=== PATIENT | male | born 1960 | race Caucasian/White ===

== ENCOUNTER 2016-09-25 06:30 | Emergency (ER) | payer BC, OTHER ==
[~2016-09-25] VITALS: Ht 175.3 cm; Wt 81.6 kg
[~2016-09-25 06:30] MED LIST: LOSA1TAB2 PO
[2016-09-25 06:37] VITALS: BP 127/76
== END 2016-09-25 06:48 | disposition home or self-care (01) ==
LOC: ER 06:38
DX: L03.012 Cellulitis of left finger (principal); I10 Essential (primary) hypertension
CPT/HCPCS: A4606; Z7610

== ENCOUNTER 2021-04-13 21:02 | Emergency (ER) | payer OTHER, MEDICAID ==
[~2021-04-13] VITALS: Ht 182.9 cm; Wt 86.2 kg
--- NOTE | 2021-04-13 21:20 | NUR ---
PT BIBWIFE C/O POSSIBLE ABSCESS NEAR ANUS. PT ALERT AND ORIENTED X3. AMBULATORY WITH NON LABORED BREATHING. ACCOMPANIED BY HIS AT BEDSIDE FOR TRANSLATING TAJIK
[2021-04-13] MEDS ORDERED: oxyCODONE/APAP (5/325 MG) 1 UDTAB TABLET ONE (21:28)
[2021-04-13] MEDS ORDERED: LIDOCAINE/PRILOCAINE (5GM) 5 GM TUBE TP ONE ×2 (21:28→21:30)
[2021-04-13] MEDS ORDERED: oxyCODONE/APAP (5/325 MG) 1 UDTAB TABLET PO ONE (21:30)
[2021-04-13] MEDS ORDERED: IV NS 0.9% 250 ML IV ONE (22:01)
[2021-04-13] MEDS ORDERED: IOHEXOL-300 100 ML VIAL IV ONE (22:01)
--- NOTE | 2021-04-13 22:10 | NUR ---
PT GOING TO CT
[2021-04-13 22:34] LABS: BASOPHILS # (AUTO) 0.1 K/uL (0.0-0.2); BASOPHILS % (AUTO) 0.7 % (0.0-2.0); EOSINOPHILS % (AUTO) 2.3 % (0.0-6.0); HEMATOCRIT 41 % (39-51); LYMPHOCYTES % (AUTO) 32.5 % (20.0-44.0); MEAN CORPUSCULAR HGB CONC 34 g/dl (31.0-36.0); MEAN CORPUSCULAR VOLUME 95 fL (80-96); MONOCYTES # (AUTO) 0.9 K/uL (0.1-1.30); MONOCYTES % (AUTO) 9.3 % (2.0-12.0); NEUTROPHILS # (AUTO) 5.1 K/uL (1.8-8.9); NEUTROPHILS % (AUTO) 55.2 % (43.0-81.0); PLATELET COUNT (AUTO) 117 K/uL (150-450); RED BLOOD CELL COUNT(AUTO) 4.31 MIL/uL (4.5-6.0); WHITE BLOOD COUNT (AUTO) 9.3 K/uL (4.3-11.0)
[2021-04-13 22:35] LABS: CALCIUM, SERUM 8.6 mg/dL (8.5-10.1); CREATININE 1.3 mg/dL (0.6-1.3)
--- NOTE | 2021-04-13 22:40 | NUR ---
CRITICAL LAB: [id number]
[2021-04-13] MEDS ORDERED: IV NS 0.9% 1,000 ML BAG IV ONE (23:00)
[2021-04-13] MEDS ORDERED: INSULIN REGULAR, HUMAN 100 UNIT/ML 10 ML VIAL SQ ONE (23:00)
[2021-04-13] MEDS ORDERED: INSULIN REGULAR, HUMAN 100 UNIT/ML 10 ML VIAL ONE (23:07)
--- NOTE | 2021-04-13 23:12 | NUR ---
PT REFUSING INSULIN PA NOTIFIED.
[2021-04-14] MEDS ORDERED: LIDOCAINE 1%-EPI 1:100,000 50 ML VIAL IJ ONE
[2021-04-14] MEDS ORDERED: PIPERACILLIN /TAZOBACTAM 3.375 G VIAL IV ONE (00:28)
[2021-04-14] MEDS ORDERED: PIPERACILLIN /TAZOBACTAM 3.375 G in IV D5W 50 ML IV ONE (00:30)
--- NOTE | 2021-04-14 01:12 | NUR ---
DR CONROY ON THE PHONE W/ DR MARCOS AT [facility]
--- NOTE | 2021-04-14 01:54 | NUR ---
PT RESTING COMFORTABLY WITH NO COMPLAINTS.
--- NOTE | 2021-04-14 02:14 | NUR ---
CALLED [facility] FOR AN UPDATE. THEY'RE TRYING TO GET A GET A HOLD OF THE SURGEON IN ORDER TO ACCEPT THE PT, WILL GIVE US A CALL BACK
--- NOTE | 2021-04-14 02:29 | NUR ---
PER [facility]IL [employer] THEY COULDN'T GET A HOLD OF THE SURGEON HOWEVER PT IS ACCEPTED BY DR MARCOS TO [facility] FLOOR. TRANSPORTATION AUTH # [id number]
--- NOTE | 2021-04-14 03:42 | NUR ---
CALLED [facility]IL HENRIQUEZ AND ASKED FOR AN UPDATE. SHE WILL CALL US BACK
--- NOTE | 2021-04-14 04:34 | NUR ---
REC'D A CALL FROM SIVA AT [facility]. PT WILL GO TO [id number]. # FOR REPORT: [phone]
--- NOTE | 2021-04-14 04:37 | NUR ---
[facility] GAVE ETA OF 0700.
--- NOTE | 2021-04-14 06:16 | NUR ---
update on transfer info: angela pace go to [facility], # for report: [phone]
[2021-04-14] MEDS ORDERED: HYDROCODONE/APAP 5/325MG TABLET ONE (06:22)
[2021-04-14] MEDS ORDERED: ACETAMINOPHEN ES 500 MG TABLET ONE (06:25)
[2021-04-14] MEDS ORDERED: ACETAMINOPHEN 325 MG TABLET PO ONE (06:30)
[2021-04-14] MEDS ORDERED: HYDROCODONE/APAP 5/325MG TABLET PO ONE (06:30)
--- NOTE | 2021-04-14 06:48 | NUR ---
report given to Dr Garcia at [facility]
--- NOTE | 2021-04-14 07:10 | NUR ---
PT BEING TRANSFERRED VIA AMBULANCE
[2021-04-14 07:11] VITALS: BP 146/78
== END 2021-04-14 07:11 | disposition short-term general hospital (02) ==
LOC: ER 21:07
DX: K61.0 Anal abscess (principal); E11.65 Type 2 diabetes mellitus with hyperglycemia; I10 Essential (primary) hypertension; Z20.822 Contact with and (suspected) exposure to COVID-19
CPT/HCPCS: 36415; 72194; 80048; 85025; 85730; 87426; 96361; 96365; 99285; C9803; J2543; J7030 ×2; J7060; Q9967; J1815; J7050

== ENCOUNTER 2024-07-16 13:27 | Emergency (ER) | payer MEDICARE, OTHER ==
[~2024-07-16] VITALS: Ht 175.3 cm; Wt 75.3 kg
[2024-07-16] MEDS ORDERED: IOHEXOL-350 100 ML VIAL IV ONE (13:41)
[2024-07-16] MEDS ORDERED: CT SWABBABLE VALVE TRANS SET 1 EA INFUS.SET MC ONE (13:43)
[2024-07-16] MEDS ORDERED: IV NS 0.9% 250 ML IV ONE (13:43)
[2024-07-16 14:00] LABS: BASOPHILS # (AUTO) 0.1 K/uL (0.0-0.2); BASOPHILS % (AUTO) 0.7 % (0.0-2.0); EOSINOPHILS # (AUTO) 0.3 K/uL (0.0-0.7); HEMATOCRIT 41 % (39-51); HEMOGLOBIN 13.8 g/dL (13.5-17.5); LYMPHOCYTES % (AUTO) 47.8 % (20.0-44.0); MEAN CORPUSCULAR HEMOGLOBIN 31 PG (26.0-33.0); MEAN CORPUSCULAR HGB CONC 34 g/dl (31.0-36.0); MEAN CORPUSCULAR VOLUME 90 fL (80-96); MONOCYTES # (AUTO) 0.6 K/uL (0.1-1.30); NEUTROPHILS # (AUTO) 3.4 K/uL (1.8-8.9); NEUTROPHILS % (AUTO) 41.5 % (43.0-81.0); PLATELET COUNT (AUTO) 137 K/uL (150-450); RED BLOOD CELL COUNT(AUTO) 4.52 MIL/uL (4.5-6.0); RED CELL DISTRIBUTION WIDTH 13.7 % (11.5-15.0); WHITE BLOOD COUNT (AUTO) 8.3 K/uL (4.3-11.0)
[2024-07-16 14:05] LABS: CARBON DIOXIDE 28 mmol/L (21-32); CHLORIDE 107 mmol/L (98-107); CREATININE 1.2 mg/dL (0.6-1.3); GLUCOSE 102 mg/dL (74-106); POTASSIUM 4.6 mmol/L (3.5-5.1); SODIUM SERUM 143 mmol/L (136-145); UREA NITROGEN, BLOOD 22 mg/dL (7-18)
[2024-07-16 14:08] LABS: INR 1.03 (0.91-1.10); PARTIAL THROMBOPLASTIN TIME 26.6 SEC (24.3-34.3); PROTHROMBIN TIME 10.9 SECS (9.2-11.1)
[2024-07-16] MEDS ORDERED: ASPIRIN 81 MG TAB.CHEW ONE (14:59)
[2024-07-16] MEDS: ASPIRIN 81 MG TAB.CHEW PO ONE (15:29)
[2024-07-16] MEDS: CLOPIDOGREL BISULFATE 300 MG TABLET PO ONE (15:29)
[2024-07-16 15:34] VITALS: BP 134/78; TEMP 98.3; O2SAT 100
== END 2024-07-16 15:35 | disposition home or self-care (01) ==
LOC: ER 13:30
DX: G45.9 Transient cerebral ischemic attack, unspecified (principal); I10 Essential (primary) hypertension; E11.9 Type 2 diabetes mellitus without complications; R91.8 Other nonspecific abnormal finding of lung field; Z79.899 Other long term (current) drug therapy
CPT/HCPCS: 99291; 70498; 93005; 71045; 70496; 85025; 80048; 36415; 84484; 85730; 70450; J7050; Q9967

== ENCOUNTER 2024-07-17 14:27 | Emergency (ER) | payer MEDICARE, OTHER ==
[~2024-07-17] VITALS: Ht 182.9 cm; Wt 87.5 kg
[2024-07-17 15:16] LABS: BASOPHILS % (AUTO) 0.5 % (0.0-2.0); EOSINOPHILS # (AUTO) 0.2 K/uL (0.0-0.7); EOSINOPHILS % (AUTO) 3.1 % (0.0-6.0); HEMATOCRIT 40 % (39-51); HEMOGLOBIN 13.5 g/dL (13.5-17.5); LYMPHOCYTES # (AUTO) 3.3 K/uL (0.8-4.8); LYMPHOCYTES % (AUTO) 46.7 % (20.0-44.0); MEAN CORPUSCULAR HEMOGLOBIN 31 PG (26.0-33.0); MEAN CORPUSCULAR HGB CONC 34 g/dl (31.0-36.0); MEAN CORPUSCULAR VOLUME 90 fL (80-96); MONOCYTES # (AUTO) 0.5 K/uL (0.1-1.30); MONOCYTES % (AUTO) 7.4 % (2.0-12.0); NEUTROPHILS % (AUTO) 42.3 % (43.0-81.0); PLATELET COUNT (AUTO) 141 K/uL (150-450); RED BLOOD CELL COUNT(AUTO) 4.41 MIL/uL (4.5-6.0); RED CELL DISTRIBUTION WIDTH 13.9 % (11.5-15.0)
[2024-07-17 15:26] LABS: CALCIUM, SERUM 8.8 mg/dL (8.5-10.1); CREATININE 1.2 mg/dL (0.6-1.3); POTASSIUM 4.5 mmol/L (3.5-5.1)
[2024-07-17 15:29] LABS: INR 1.02 (0.91-1.10); PARTIAL THROMBOPLASTIN TIME 25.9 SEC (24.3-34.3); PROTHROMBIN TIME 10.8 SECS (9.2-11.1)
[2024-07-17 15:32] LABS: ALBUMIN 3.5 g/dL (3.4-5.0); BILIRUBIN,DIRECT 0.1 mg/dL (0.0-0.2); BILIRUBIN,TOTAL 0.4 mg/dL (0.2-1.0); TOTAL PROTEIN, SERUM 7.5 g/dL (6.4-8.2)
[2024-07-17 16:32] VITALS: BP 126/84; TEMP 98; O2SAT 98
== END 2024-07-17 16:57 | disposition left against medical advice (07) ==
LOC: ER 14:57
DX: R20.0 Anesthesia of skin (principal); R29.818 Other symptoms and signs involving the nervous system; I10 Essential (primary) hypertension; E11.9 Type 2 diabetes mellitus without complications; E78.5 Hyperlipidemia, unspecified; F17.210 Nicotine dependence, cigarettes, uncomplicated; Z79.899 Other long term (current) drug therapy
CPT/HCPCS: 36415; 70450-TC; 80048-TC; 80076-TC; 85025-TC; 85730-TC

== ENCOUNTER 2025-02-16 08:02 | Emergency (ER) | payer MEDICARE, OTHER ==
[~2025-02-16] VITALS: Ht 182.9 cm; Wt 63.0 kg
[2025-02-16 08:42] LABS: PLATELET COUNT (AUTO) 165 K/uL (150-450); RED BLOOD CELL COUNT(AUTO) 4.88 MIL/uL (4.5-6.0); RED CELL DISTRIBUTION WIDTH 13.9 % (11.5-15.0); WHITE BLOOD COUNT (AUTO) 6.5 K/uL (4.3-11.0)
[2025-02-16 08:52] LABS: CALCIUM, SERUM 9.4 mg/dL (8.5-10.1); CREATININE 1.3 mg/dL (0.6-1.3); SODIUM SERUM 140.0 mmol/L (136-145); UREA NITROGEN, BLOOD 22.0 mg/dL (7-18)
[2025-02-16 08:54] LABS: ASPARTATE AMINOTRANSFERASE 53.0 U/L (15-37); TOTAL PROTEIN, SERUM 8.3 g/dL (6.4-8.2)
[2025-02-16 09:00] VITALS: TEMP 98.6
[2025-02-16] MEDS ORDERED: KETOROLAC TROMETHAMINE 15 MG/ML VIAL ONE (10:04)
[2025-02-16] MEDS ORDERED: METOCLOPRAMIDE HCL 10 MG/2 ML VIAL ONE (10:04)
[2025-02-16] MEDS: METOCLOPRAMIDE HCL 10 MG/2 ML VIAL IV ONE (10:12)
[2025-02-16] MEDS: KETOROLAC TROMETHAMINE 15 MG/ML VIAL IV ONE (10:12)
[2025-02-16] MEDS: IV NS 0.9% 1,000 ML BAG IV ONE (10:12)
[2025-02-16 11:26] VITALS: BP 158/74; O2SAT 98
== END 2025-02-16 11:27 | disposition home or self-care (01) ==
LOC: ER 08:06
DX: R20.2 Paresthesia of skin (principal); M54.2 Cervicalgia; R42 Dizziness and giddiness; R51.9 Headache, unspecified; E11.9 Type 2 diabetes mellitus without complications; I10 Essential (primary) hypertension; Z79.82 Long term (current) use of aspirin; Z79.899 Other long term (current) drug therapy; Z86.73 Personal history of transient ischemic attack (TIA), and cerebral infarction without residual deficits
CPT/HCPCS: 99285; 96374; 70450; 96361; 96375; 93005; 85025; 36415; 80053; 82962; J1885; J2765; J7030